=== PATIENT | male | born 1965 | race Caucasian/White ===

== ENCOUNTER 2019-09-08 15:17 | Emergency (ER) | payer BC, OTHER ==
[~2019-09-08] VITALS: Ht 167.7 cm; Wt 70.3 kg
[2019-09-08] MEDS ORDERED: KETOROLAC 30 MG/ML VIAL ONE (17:42)
--- NOTE | 2019-09-08 17:42 | ED GU-Male ---
General Chief Complaint: Abdominal/GI Problems Stated Complaint: ABD PAIN, GROIN PAIN Nursing Triage Note: PT AMBULATE TO TRIAGE WITH C/O LOWER ABD PAIN/GROIN PAIN STARTING THIS MORNING. PT REPORTS HAVING A KIDNEY STONE DX AT A HOSP IN [place]. Source: patient Exam Limitations: no limitations (REAGAN COTTO) History of Present Illness Date Seen by Provider: Sep 08, 2019 Time Seen by Provider: 17:32 Initial Comments Patient resents to ER by private conveyance with chief complaint of some right flank and groin pain sharp, constant and severe since 8:00 this morning. He says is consistent with a kidney stone pain. He had a kidney stone past 10 days ago it was 4 mm. They gave him some hydrocodone and Flomax. He said the pain went away while he was in the emergency room and so he did use the medications but he didn't fill them and took 3 doses of hydrocodone today with no relief. He had a bowel movement earlier today. He has no history of abdominal surgeries. He takes no routine medications. He has no significant medical history. No trauma, blood in stool, nausea vomiting or diarrhea. (REAGAN COTTO) Allergies and Home Medications Allergies Coded Allergies: No Known Drug Allergies (Unverified , 09/08/19) Patient Home Medication List Home Medication List Reviewed: Yes (REAGAN COTTO) Review of Systems Review of Systems Constitutional: No chills, No diaphoresis EENTM: No ear pain, No blurred vision Respiratory: No cough, No short of breath Cardiovascular: No chest pain, No edema Gastrointestinal: abdominal pain; No constipation, No diarrhea, No nausea, No vomiting Genitourinary: see HPI; denies burning, denies discharge; flank pain; denies hematuria Musculoskeletal: see HPI, back pain Psychiatric/Neurological: Denies Anxiety, Denies Depressed (REAGAN COTTO) Past Kqzdbmk-Xpjvxy-Hyahfl Hx Patient Social History Alcohol Use: Denies Use Recreational Drug Use: No Smoking Status: Never a Smoker 2nd Hand Smoke Exposure: Yes Recent Foreign Travel: No Contact w/Someone Who Travel: No Recent Infectious Disease Expo: No Recent Hopitalizations: No Physical Abuse: No Sexual Abuse: No Mistreated: No Fear: No (REAGAN COTTO) Seasonal Allergies Seasonal Allergies: No (REAGAN COTTO) Past Medical History Surgeries: No Respiratory: No Cardiac: No Neurological: No Genitourinary: No Gastrointestinal: No Musculoskeletal: No Endocrine: No HEENT: No Cancer: Yes Skin Did You Recieve Any Treatments: Yes What Type of Treatment Did You: Radiation, Surgical Intervention Psychosocial: No Integumentary: No Blood Disorders: No (REAGAN COTTO) Physical Exam Vital Signs Vital Signs - First Documented 09/08/19 16:31 Temp 36.9 Pulse 70 Resp 17 B/P (MAP) 149/90 (109) O2 Delivery Room Air (MARK BOLTON APRN) Vital Signs Capillary Refill : Less Than 3 Seconds (REAGAN COTTO) Height, Weight, BMI Height: '" Weight: lbs. oz. kg; 24.00 BMI Method: General Appearance: WD/WN, mild distress HEENT: PERRL/EOMI, pharynx normal Neck: full range of motion, normal inspection Cardiovascular: normal peripheral pulses, regular rate, rhythm Respiratory: no respiratory distress, no accessory muscle use Gastrointestinal: normal bowel sounds, soft, no organomegaly, tenderness (right groin), other (negative for rebound tenderness, psoas sign or Rovsing sign) Back: CVA tenderness (R) Extremities: normal range of motion, normal capillary refill Neurologic/Psychiatric: alert, normal mood/affect (REAGAN COTTO) Progress/Results/Core Measures Suspected Sepsis Recent Fever Within 48 Hours: No Infection Criteria Present: None New/Unexplained Altered Menta: No Sepsis Screen: No Definite Risk SIRS Temperature: Pulse: 70 Respiratory Rate: 17 Blood Pressure 149 /90 Mean: 109 (REAGAN COTTO) Results/Orders Lab Results Laboratory Tests Test 09/08/19 15:36 Range/Units Urine Color YELLOW Urine Clarity CLEAR Urine pH 6.0 5-9 Urine Specific [place] >=1.030 1.016-1.022 Urine Protein NEGATIVE NEGATIVE Urine Glucose (UA) NEGATIVE NEGATIVE Urine Ketones 1+ H NEGATIVE Urine Nitrite NEGATIVE NEGATIVE Urine Bilirubin NEGATIVE NEGATIVE Urine Urobilinogen 0.2 < = 1.0 MG/DL Urine Leukocyte Esterase NEGATIVE NEGATIVE Urine RBC (Auto) 1+ H NEGATIVE Urine RBC 0-2 /HPF Urine WBC NONE /HPF Urine Squamous Epithelial Cells NONE /HPF Urine Crystals NONE /LPF Urine Bacteria NEGATIVE /HPF Urine Casts NONE /LPF Urine Mucus NEGATIVE /LPF Urine Culture Indicated NO (MARK BOLTON APRN) Medications Given in ED Current Medications Medications Dose Ordered Sig/Birgit Route Start Time Stop Time Status Last Admin Dose Admin Ketorolac Tromethamine 30 mg ONCE ONCE IVP 09/08/19 17:45 09/08/19 17:46 DC 09/08/19 17:48 30 MG (MARK BOLTON APRN) Vital Signs/I&O 09/08/19 16:31 Temp 36.9 Pulse 70 Resp 17 B/P (MAP) 149/90 (109) O2 Delivery Room Air (MARK BOLTON APRN) Vital Signs/I&O Capillary Refill : Less Than 3 Seconds (REAGAN COTTO) Blood Pressure Mean: 109 Progress Note : Time: 17:41 Progress Note Toradol for pain, urinalysis and a CT without IV contrast kidney stone protocol. He does not have septic vital signs and no significant distress necessitating further workup. (REAGAN COTTO) Diagnostic Imaging Diagonstic Imaging: CT (without IV contrast; kidney stone protocol) Plain Films/CT/US/NM/MRI: abdomen, pelvis Reviewed: Reviewed by Me (REAGAN COTTO) Transfer of Care Transfer of Care Time: 19:00 Care transferred to: Mark Bolton (REAGAN COTTO) Departure Communication (Admissions) 191-patient is completely pain-free after Toradol. I'll add by mouth Toradol to his pain regimen. He is going back to his hometown in [place] 2 days from now. He'll increase his fluid intake in the meantime. He already has hydrocodone and tamsulosin with him. (MARK BOLTON APRN) Impression Primary Impression: Right ureteral calculus Disposition: 01 HOME, SELF-CARE Condition: Stable Departure-Patient Inst. Decision time for Depature: 19:13 (MARK BOLTON APRN) Referrals: NO,LOCAL PHYSICIAN (PCP) Primary Care Physician Patient Instructions: Kidney Stones in Adults Add. Discharge Instructions: 1. Return to ER for any concerns 2. Pain medication as directed 3. Follow-up with her doctor next week All discharge instructions reviewed with patient and/or family. Voiced understanding. REAGAN COTTO Sep 08, 2019 17:42 MARK BOLTON APRN Sep 08, 2019 19:15
[2019-09-08 17:43] LABS: BILIRUBIN,URINE NEGATIVE (NEGATIVE); CLARITY,URINE CLEAR; COLOR,URINE YELLOW; GLUCOSE, URINE (UA) NEGATIVE (NEGATIVE); KETONES,URINE 1+ (NEGATIVE); LEUKOCYTE ESTERASE ,URINE NEGATIVE (NEGATIVE); NITRITE,URINE NEGATIVE (NEGATIVE); PROTEIN,URINE NEGATIVE (NEGATIVE)
[2019-09-08] MEDS ORDERED: KETOROLAC 60 MG/2 ML VIAL IM ONE (17:45)
[2019-09-08] MEDS ORDERED: KETOROLAC 30 MG/ML VIAL IVP ONE (17:45)
[2019-09-08 17:52] LABS: BACTERIA,URINE NEGATIVE /HPF; RBC,URINE 0-2 /HPF
--- NOTE | 2019-09-08 18:42 | Diagnostic Imaging Report ---
PROCEDURE: CT urinary tract, rule out kidney stone. TECHNIQUE: Multiple contiguous axial images were obtained through the abdomen and pelvis without the use of intravenous contrast. Auto Exposure Controls were utilized during the CT exam to meet ALARA standards for radiation dose reduction. INDICATION: Abdominal pain. COMPARISON: None available FINDINGS: Bibasilar atelectasis. The unenhanced liver, spleen, adrenal glands, pancreas, and gallbladder are unremarkable. A 4 mm calcification is identified within the distal right ureter resulting in moderate right hydroureteronephrosis. The right kidney is enlarged with associated right perinephric fat stranding. The left kidney and left ureter are unremarkable. Minimal vascular calcifications. No aneurysmal dilatation of the abdominal aorta. The appendix is unremarkable. The urinary bladder is predominantly decompressed, therefore not well evaluated. No bowel obstruction or pneumatosis. No significant adenopathy, free air, or free fluid within the abdomen or pelvis. No acute osseous abnormality. IMPRESSION: 4 mm calculus within the distal right ureter resulting in moderate right hydroureteronephrosis and obstructive uropathy. Additional findings as above. Dictated by: Dictated on workstation # [id number]
--- NOTE | 2019-09-08 19:00 | NUR ---
REPORT GIVEN TO CANDACE CAMPO.
[2019-09-08 19:23] VITALS: BP 92/67
== END 2019-09-08 19:23 | disposition home or self-care (01) ==
LOC: ER 15:19
DX: N13.2 Hydronephrosis with renal and ureteral calculous obstruction (principal); Z77.22 Contact with and (suspected) exposure to environmental tobacco smoke (acute) (chronic); Z85.828 Personal history of other malignant neoplasm of skin
CPT/HCPCS: 74176; 81000